=== PATIENT | female | born 1985 | race Two or more races ===

== ENCOUNTER 2016-12-29 18:05 | Emergency (ER) | payer SELFPAY ==
[2016-12-29] MEDS ORDERED: TETRACAINE HCL 0.5% OPH SOLN 2 ML OD ONE (18:27)
--- NOTE | 2016-12-29 18:33 | ER Document Report ---
ED Eye Complaint - General Chief Complaint: Eye Problem Stated Complaint: RIGHT EYE PAIN Time Seen by Provider: 12/29/16 18:19 Mode of Arrival: Ambulatory Information source: Patient Notes: 31-year-old female presents to ED for right eye pain swelling and drainage for 2 -3 days started off with a cold congestion sore throat. Then she started with some redness under her eye and then redness in her eye. She states she started using some pinkeye [id number] medicine and the redness and pain got worse and then the swelling became worse. TRAVEL OUTSIDE OF THE [place] IN LAST 30 DAYS: No - HPI Onset: Other - Day Eye location: Right Injury: No - States she did complain a dog a couple days before this started but she als Occurred at: Home Quality of pain: Burning Severity: Severe Pain Level: 5 Safety glasses worn: No Contact lenses worn: No Associated symptoms: Burning, Pain, Eyelid swelling Past Medical History - General Information source: Patient - Social History Smoking Status: Current Every Day Smoker Cigarette use (# per day): Yes - Half pack per day Chew tobacco use (# tins/day): No Smoking Education Provided: Yes - Less than 2 minutes Frequency of alcohol use: None Drug Abuse: None Occupation: none Lives with: Spouse/Significant other Family History: DM, Hyperlipidemia, Hypertension, Malignancy, Thyroid Disfunction Patient has suicidal ideation: No - Past Medical History Cardiac Medical History: Reports: None Pulmonary Medical History: Reports: None EENT Medical History: Reports: None Neurological Medical History: Reports: None Endocrine Medical History: Reports: None Renal/ Medical History: Reports: None Malignancy Medical History: Reports: None GI Medical History: Reports: None Musculoskeltal Medical History: Reports Hx Musculoskeletal Trauma Skin Medical History: Reports None Psychiatric Medical History: Reports: None Traumatic Medical History: Reports: Hx Fractures Infectious Medical History: Reports: None Surgical Hx: Negative Past Surgical History: Reports: None Review of Systems - Review of Systems Constitutional: No symptoms reported EENT: Eye pain, Eye discharge, Nose discharge Cardiovascular: No symptoms reported Respiratory: No symptoms reported Gastrointestinal: No symptoms reported Genitourinary: No symptoms reported Female Genitourinary: No symptoms reported Musculoskeletal: No symptoms reported Skin: No symptoms reported Hematologic/Lymphatic: No symptoms reported Neurological/Psychological: No symptoms reported -: Yes All other systems reviewed and negative Physical Exam - Vital signs Vitals: Temp Pulse Resp BP Pulse Ox 98.3 F 88 16 121/79 100 12/29/16 18:10 12/29/16 18:10 12/29/16 18:10 12/29/16 18:10 12/29/16 18:10 Interpretation: Normal - General General appearance: Appears well, Alert - HEENT Head: Normocephalic, Atraumatic Eyes: Periorbital edema Conjunctiva: Injected Cornea: Normal Eyelashes: Matted Pupils: PERRL Ears: Normal External canal: Normal Tympanic membrane: Normal Sinus: Normal Nasal: Swelling, Clear rhinorrhea Mouth/Lips: Normal Mucous membranes: Normal Pharynx: Normal Neck: Normal - Respiratory Respiratory status: No respiratory distress Chest status: Nontender Breath sounds: Normal Chest palpation: Normal - Cardiovascular Rhythm: Regular Heart sounds: Normal auscultation Murmur: No - Abdominal Inspection: Normal Distension: No distension Bowel sounds: Normal Tenderness: Nontender Organomegaly: No organomegaly - Back Back: Normal, Nontender - Extremities General upper extremity: Normal inspection, Nontender, Normal color, Normal ROM , Normal temperature General lower extremity: Normal inspection, Nontender, Normal color, Normal ROM , Normal temperature, Normal weight bearing. No: Ifsh's sign - Neurological Neuro grossly intact: Yes Cognition: Normal Orientation: AAOx4 Strong Coma Scale Eye Opening: Spontaneous Strong Coma Scale Verbal: Oriented [place] Coma Scale Motor: Obeys Commands [place] Coma Scale Total: 15 Speech: Normal Motor strength normal: LUE, RUE, LLE, RLE Sensory: Normal - Psychological Associated symptoms: Normal affect, Normal mood - Skin Skin Temperature: Warm Skin Moisture: Dry Skin Color: Normal Course - Re-evaluation Re-evalutation: 12/29/16 19:37 Consulted examined the patient. He recommended erythromycin eye ointment to the right eye as well as Keflex p.o. and patient to follow-up with the primary doctor. These were ordered and patient was discharged home to follow-up with primary doctor. Patient was given a [place] in the emergency room for pain. - Vital Signs Vital signs: Temp Pulse Resp BP Pulse Ox 98.3 F 88 16 121/79 100 12/29/16 18:10 12/29/16 18:10 12/29/16 18:10 12/29/16 18:10 12/29/16 18:10 Discharge - Discharge Clinical Impression: Blepharitis of right eyelid Qualifiers: Blepharitis type: unspecified type Eyelid: upper Qualified Code(s): H01.001 - Unspecified blepharitis right upper eyelid Condition: Stable Disposition: HOME, SELF-CARE Additional Instructions: I have given you a teaching sheet concerning the inflammation of your eyelid. You will need to use the eye ointment under your upper eyelid as instructed by the doctor. You will need to wash your eyelashes [place] and rub the area with your fingertip as he explained to you. Recommended that she follow up with a restaurant associate. Prescriptions: Cephalexin Monohydrate [Keflex 500 mg Capsule] 500 mg PO QID #20 capsule Erythromycin Base [Erythromycin] 3.5 gm RT_EYE TID #1 oint..gm. Forms: Smoking Cessation Education Referrals: JAUN HAMMOND DO [ACTIVE STAFF] - Follow up as needed
[2016-12-29] MEDS ORDERED: HYDROCODONE/ACETAMINOPHEN 5-325 MG TABLET PO ONE (18:59)
[2016-12-29] MEDS ORDERED: ERYTHROMYCIN 0.5% OPH OINTMENT 3.5 GM (ER DISP) OD SCH (19:20)
[2016-12-29 19:48] VITALS: BP 132/74
== END 2016-12-29 19:46 | disposition home or self-care (01) ==
LOC: ER 18:05
DX: H01.001 Unspecified blepharitis right upper eyelid (principal); H57.11 Ocular pain, right eye; F17.210 Nicotine dependence, cigarettes, uncomplicated
CPT/HCPCS: 99283